=== PATIENT | male | born 1995 | race African-American/Black ===

== ENCOUNTER 2019-09-02 19:50 | Inpatient (IN) | payer OTHER ==
[~2019-09-02] VITALS: Ht 177.8 cm; Wt 79.8 kg
[2019-09-15] MEDS ORDERED: ZYVOX 600600 MG/300 PO (08:55)
[2019-09-15] MEDS ORDERED: AMLODIPINE BESYL5 MG PO (08:56)
[2019-09-15] MEDS ORDERED: PROTONIX40 MG PO (08:57)
[2019-09-15] MEDS ORDERED: INTESTINEX680 M1 PO (08:57)
[2019-09-15] MEDS ORDERED: MUPIROCIN22 GM TOP (08:58)
== END 2019-09-15 13:24 | disposition home or self-care (01) | DRG 603 ==
LOC: ER 19:50 → SURH 09-03 09:16 → SEC-K 09-03 09:16 → SURH 09-03 13:58
PROVIDERS: Orthopaedic Surgery Hand Surgery; ADMIT Internal Medicine; ATTEND Internal Medicine
PROC: BP3DZZZ Magnetic Resonance Imaging (MRI) of Left Hand/Finger Joint (ICD-10-PCS; 2019-09-04)
PROC: 0J9K00Z Drainage of Left Hand Subcutaneous Tissue and Fascia with Drainage Device, Open Approach (ICD-10-PCS; principal; 2019-09-07 16:30)
PROC: BW21Y0Z Computerized Tomography (CT Scan) of Abdomen and Pelvis using Other Contrast, Unenhanced and Enhanced (ICD-10-PCS; 2019-09-11)
PROC: BW40ZZZ Ultrasonography of Abdomen (ICD-10-PCS; 2019-09-12)
DX: L03.012 Cellulitis of left finger (principal); M86.142 Other acute osteomyelitis, left hand; N17.8 Other acute kidney failure; K80.80 Other cholelithiasis without obstruction; B95.61 Methicillin susceptible Staphylococcus aureus infection as the cause of diseases classified elsewhere; R50.9 Fever, unspecified; Z03.818 Encounter for observation for suspected exposure to other biological agents ruled out
CPT/HCPCS: 74175